=== PATIENT | female | born 1990 | race Two or more races ===

== ENCOUNTER 2018-03-06 14:39 | Inpatient (IN) | payer OTHER ==
[~2018-03-06] VITALS: Ht 162.6 cm; Wt 66.2 kg
[~2018-03-06 14:39] MED LIST: SINGULAIR 10MG10 MG PO; SYMBICORT 16010.2 GM IH; ZYNCOF 20-400120 ML PO
[2018-04-11] MEDS ORDERED: OBSTETRIX EC C1 EACH PO (22:11)
== END 2018-04-14 13:28 | disposition home or self-care (01) | DRG 768 ==
LOC: OB/GYN 04-03 12:45 → LDR 04-11 21:21 → OB/GYN 04-11 21:52 → LDR 04-12 10:51 → OB/GYN 04-12 14:13
PROVIDERS: ADMIT Obstetrics & Gynecology Maternal & Fetal Medicine
PROC: 4A1HXCZ Monitoring of Products of Conception, Cardiac Rate, External Approach (ICD-10-PCS; 2018-04-11)
PROC: 10E0XZZ Delivery of Products of Conception, External Approach (ICD-10-PCS; principal; 2018-04-12)
PROC: 0DQR0ZZ Repair Anal Sphincter, Open Approach (ICD-10-PCS; 2018-04-12)
PROC: 0W8NXZZ Division of Female Perineum, External Approach (ICD-10-PCS; 2018-04-12)
DX: O70.21 Third degree perineal laceration during delivery, IIIa (principal); Z37.0 Single live birth; Z3A.41 41 weeks gestation of pregnancy; Z22.330 Carrier of Group B streptococcus

== ENCOUNTER → 2018-04-01 | Outpatient (CLI) | payer OTHER | END | disposition home or self-care (01) | LOC: NST 14:09 | DX: Z34.83 Encounter for supervision of other normal pregnancy, third trimester (principal) ==

== ENCOUNTER 2018-04-07 11:49 | Outpatient (CLI) | payer OTHER | END 2018-04-07 13:24 | disposition home or self-care, planned readmission (81) | LOC: NST 11:49 | DX: Z34.83 Encounter for supervision of other normal pregnancy, third trimester (principal) ==

== ENCOUNTER 2023-04-20 18:06 | Inpatient (IN) | payer OTHER ==
[~2023-04-20] VITALS: Ht 162.6 cm; Wt 65.3 kg
[~2023-04-20 18:06] MED LIST changes: +OBSTETRIX EC C1 EACH PO
[2023-04-29] MEDS ORDERED: AMPICILLIN SODIUM 2,000 MG VIAL ONE (02:14)
[2023-04-29] MEDS ORDERED: AMPICILLIN SODIUM 2,000 MG VIAL IV STA (02:14)
[2023-04-29] MEDS ORDERED: RINGERS SOLUTION,LACTATED 1,000 ML IV SCH (02:15)
[2023-04-29] MEDS ORDERED: SINGULAIR10 MG PO (02:15)
[2023-04-29] MEDS ORDERED: CHLORHEXIDINE GLUCONATE 120 ML BOTTLE TOP ONE (02:32)
[2023-04-29] MEDS ORDERED: OXYTOCIN 20 UNITS/1000ML RL PIGGYBAG IV ONE (02:32)
[2023-04-29] MEDS ORDERED: ERYTHROMYCIN BASE 1 GM TUBE OP ONE (02:32)
[2023-04-29 03:00] LABS: HEMATOCRIT 32.1 % (36.0-45.00); HEMOGLOBIN 10.9 g/dL (12.0-15.00); MEAN CELL VOLUME 89.9 fL (80.00-100.00); MEAN CORPUSCULAR HEMOGLOBIN 30.7 pg (27.00-32.0); MEAN CORPUSCULAR HGB CONC 34.1 g/dl (32.0-36.0); PLATELET COUNT 185 K/uL (150-450); RED BLOOD COUNT 3.56 M/uL (4.00-6.00); RED CELL DISTRIBUTION WIDTH 12.6 % (11.5-14.5)
[2023-04-29 03:08] LABS: INR < 0.93; PARTIAL THROMBOPLASTIN TIME 24.6 SECONDS (22.0-34.0); PROTHROMBIN TIME 9.2 SECONDS (9.0-11.5)
[2023-04-29 03:13] LABS: ALBUMIN 3.2 gm/dL (3.4-5.0); BILIRUBIN TOTAL 0.39 mg/dL (0.3-1.2); CALCIUM 9.5 mg/dL (8.5-10.1); CREATININE SERUM 0.72 mg/dL (0.55-1.02); GFR 94.48; GLOBULINA 3.8 G/DL (2.4-3.5); POTASSIUM 3.21 mEq/L (3.5-5.1)
[2023-04-29] MEDS ORDERED: METHYLERGONOVINE MALEATE 0.2 MG/ML AMPUL ONE (03:46)
[2023-04-29] MEDS ORDERED: OXYTOCIN 1,000 ML IV SCH (04:00)
[2023-04-29] MEDS ORDERED: ERYTHROMYCIN BASE 1 GM TUBE OP SCH (04:00)
[2023-04-29] MEDS ORDERED: CHLORHEXIDINE GLUCONATE 120 ML BOTTLE TOP SCH (04:00)
[2023-04-29] MEDS ORDERED: LIDOCAINE HCL 1% 200MG/20ML VIAL IJ SCH (04:00)
[2023-04-29] MEDS ORDERED: METHYLERGONOVINE MALEATE 0.2 MG/ML AMPUL IM ONE ×2 (04:15→05:15)
[2023-04-29] MEDS ORDERED: AMPICILLIN SODIUM 1,000 MG VIAL IV SCH (05:00)
[2023-04-29] MEDS ORDERED: ACETAMINOPHEN 500 MG GEL..CAP PO ONE (05:15)
[2023-04-29] MEDS ORDERED: KETOROLAC TROMETHAMINE 10 MG TABLET PO PRN (12:00)
[2023-04-29 19:35] LABS: HEMATOCRIT 27.5 % (36.0-45.00); HEMOGLOBIN 9.5 g/dL (12.0-15.00); MEAN CELL VOLUME 90.1 fL (80.00-100.00); MEAN CORPUSCULAR HGB CONC 34.4 g/dl (32.0-36.0); PLATELET COUNT 168 K/uL (150-450); RED BLOOD COUNT 3.05 M/uL (4.00-6.00); RED CELL DISTRIBUTION WIDTH 12.6 % (11.5-14.5)
== END 2023-05-01 11:00 | disposition home or self-care (01) | DRG 807 ==
LOC: OB/GYN 04-29 02:10 → EDBD 04-29 02:10 → LDR 04-29 02:10 → OB/GYN 04-29 04:34
PROVIDERS: Obstetrics & Gynecology; ADMIT Obstetrics & Gynecology; ATTEND Obstetrics & Gynecology
PROC: 10E0XZZ Delivery of Products of Conception, External Approach (ICD-10-PCS; principal; 2023-04-29)
PROC: 0HQ9XZZ Repair Perineum Skin, External Approach (ICD-10-PCS; 2023-04-29)
PROC: 4A1HXCZ Monitoring of Products of Conception, Cardiac Rate, External Approach (ICD-10-PCS; 2023-04-29)
DX: O70.0 First degree perineal laceration during delivery (principal); Z37.0 Single live birth; O99.824 Streptococcus B carrier state complicating childbirth; Z3A.40 40 weeks gestation of pregnancy; Z20.822 Contact with and (suspected) exposure to COVID-19